=== PATIENT | female | born 1950 | race Asian ===

== ENCOUNTER 2020-06-22 09:17 | Outpatient (CLI) | payer OTHER | END 2020-06-22 19:19 | disposition home or self-care (01) | LOC: RAD 09:17 | DX: Z00.00 Encounter for general adult medical examination without abnormal findings (principal); I10 Essential (primary) hypertension; E78.49 Other hyperlipidemia; R73.03 Prediabetes; U07.1 COVID-19; Z76.89 Persons encountering health services in other specified circumstances; R53.83 Other fatigue; Z79.899 Other long term (current) drug therapy; M54.89 Other dorsalgia ==

== ENCOUNTER 2020-07-07 08:40 | Outpatient (CLI) | payer OTHER | END 2020-07-07 23:17 | disposition home or self-care (01) | LOC: MRI 08:40 | DX: Z00.00 Encounter for general adult medical examination without abnormal findings (principal); I10 Essential (primary) hypertension; E78.49 Other hyperlipidemia; R73.03 Prediabetes; U07.1 COVID-19; Z76.89 Persons encountering health services in other specified circumstances; R53.83 Other fatigue; Z79.899 Other long term (current) drug therapy; M54.89 Other dorsalgia ==

== ENCOUNTER 2020-07-19 11:00 | Outpatient (CLI) | payer OTHER | END 2020-07-19 23:42 | disposition home or self-care (01) | LOC: MAMMO 11:00 | DX: Z12.31 Encounter for screening mammogram for malignant neoplasm of breast (principal) ==

== ENCOUNTER 2021-08-10 09:33 | Outpatient (CLI) | payer OTHER | END 2021-08-10 19:17 | disposition home or self-care (01) | LOC: MAMMO 09:33 | PROVIDERS: ATTEND Nurse Practitioner Family | DX: I10 Essential (primary) hypertension (principal); M54.89 Other dorsalgia; M25.50 Pain in unspecified joint; M54.12 Radiculopathy, cervical region; M25.512 Pain in left shoulder; Z12.31 Encounter for screening mammogram for malignant neoplasm of breast ==

== ENCOUNTER 2021-09-02 10:00 | Outpatient (CLI) | payer OTHER | END 2021-09-02 20:15 | disposition home or self-care (01) | LOC: RAD 10:00 | PROVIDERS: ATTEND Nurse Practitioner Family | DX: Z00.00 Encounter for general adult medical examination without abnormal findings (principal); Z00.8 Encounter for other general examination; Z13.6 Encounter for screening for cardiovascular disorders; Z71.89 Other specified counseling; Z71.82 Exercise counseling; Z13.31 Encounter for screening for depression; Z68.23 Body mass index [BMI] 23.0-23.9, adult; I10 Essential (primary) hypertension; E78.49 Other hyperlipidemia; Z13.820 Encounter for screening for osteoporosis; M81.8 Other osteoporosis without current pathological fracture ==

== ENCOUNTER 2022-06-07 09:45 | Outpatient (CLI) | payer OTHER | END 2022-06-07 19:36 | disposition home or self-care (01) | LOC: RAD 09:45 | PROVIDERS: ATTEND Internal Medicine Rheumatology | DX: M06.4 Inflammatory polyarthropathy (principal); M10.09 Idiopathic gout, multiple sites ==